=== PATIENT | male | born 1990 | race African-American/Black ===

== ENCOUNTER 2017-07-12 00:36 | Emergency (ER) | payer OTHER ==
[2017-07-12 00:57] VITALS: BP 139/90
--- NOTE | 2017-07-12 00:58 | ED Physician Documentation ---
PD HPI MALE - Stated complaint Stated Complaint: MALE - Chief complaint Chief Complaint: Wound - History obtained from History obtained from: Patient - History of Present Illness Timing - onset: Today Associated symptoms: Genital sore / lesion. No: Dysuria, Urinary frequency, Discharge PD HPI MALE CONTRIB FACTORS: Sexually active Similar symptoms before: Diagnosis (similar to previous episode of herpes) Recently seen: Not recently seen - Additional information Additional information: since this morning has had mild discomfort of penile shaft; tonight when showering, he noted lesions to penile shaft. 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 Review of Systems Constitutional: denies: Fever : denies: Dysuria, Frequency, Discharge Skin: reports: Lesions (penis) PD PAST MEDICAL HISTORY - Past Medical History Past Medical History: Yes Other Past Medical History: Herpes Simplex - Past Surgical History Past Surgical History: No - Present Medications Home Medications: Ambulatory Orders Medication Instructions Recorded Confirmed Valacyclovir HCl [Valacyclovir] 500 mg PO BID #5 tablet 07/12/17 - Allergies Allergies/Adverse Reactions: Allergies Allergy/AdvReac Type Severity Reaction Status Date / Time No Known Drug Allergies Allergy Verified 07/12/17 00:42 - Social History Does the pt smoke?: No Smoking Status: Never smoker Does the pt drink ETOH?: No Does the pt have substance abuse?: No - Immunizations Immunizations are current?: Yes - POLST Patient has POLST: No PD ED PE NORMAL - Vitals Vital signs reviewed: Yes - General General: Alert and oriented X 3, No acute distress, Well developed/nourished PD ED PE EXPANDED - Male Male : Skin lesions (there is a cluster of 4-5 ruptured vesicles without active discharge, located on ventral aspect of penile shaft). 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
[2017-07-12] MEDS ORDERED: valACYclovir 500 MG TABLET PO STA (01:09)
== END 2017-07-12 01:29 | disposition home or self-care (01) ==
LOC: ED 00:36
DX: A60.01 Herpesviral infection of penis (principal)
CPT/HCPCS: 99283; A9270

== ENCOUNTER 2017-09-16 18:15 | Emergency (ER) | payer OTHER ==
[2017-09-16 18:35] VITALS: BP 137/89
--- NOTE | 2017-09-16 19:38 | ED Physician Documentation ---
PD HPI SKIN - Stated complaint Stated Complaint: BLISTERS - Chief complaint Chief Complaint: Wound - History obtained from History obtained from: Patient - History of Present Illness Timing - onset: Today (He has a history of genital herpes and it recurred today. He needs medication.) Review of Systems Constitutional: denies: Fever, Chills Respiratory: denies: Dyspnea, Cough GI: denies: Abdominal Pain, Nausea, Vomiting PD PAST MEDICAL HISTORY - Past Surgical History Past Surgical History: No - Present Medications Home Medications: Ambulatory Orders Medication Instructions Recorded Confirmed Valacyclovir HCl [Valacyclovir] 500 mg PO BID #5 tablet 07/12/17 Valacyclovir HCl [Valacyclovir] 500 mg PO BID #10 tablet 09/16/17 - Allergies Allergies/Adverse Reactions: Allergies Allergy/AdvReac Type Severity Reaction Status Date / Time No Known Drug Allergies Allergy Verified 07/12/17 00:42 - Social History Does the pt smoke?: No Smoking Status: Never smoker Does the pt drink ETOH?: No Does the pt have substance abuse?: No - Immunizations Immunizations are current?: Yes - POLST Patient has POLST: No PD ED PE NORMAL - Vitals Vital signs reviewed: Yes - General General: Alert and oriented X 3, No acute distress - Male Male : Other (Genital herpes L shaft) Results - Vitals Vitals: Vital Signs - 24 hr 09/16/17 18:30 Temperature 36.5 C Heart Rate 71 Respiratory 16 Rate Blood Pressure 137/89 H O2 Saturation 100 Oxygen O2 Source Room air PD MEDICAL DECISION MAKING - Sepsis Event Vital Signs: Vital Signs - 24 hr 09/16/17 18:30 Temperature 36.5 C Heart Rate 71 Respiratory 16 Rate Blood Pressure 137/89 H O2 Saturation 100 Oxygen O2 Source Room air Departure - Departure Disposition: 01 Home, Self Care Clinical Impression: Herpes simplex of male genitalia Condition: Good Record reviewed to determine appropriate education?: Yes Instructions: ED Herpes Simplex Virus Type 2 Prescriptions: Valacyclovir HCl [Valacyclovir] 500 mg PO BID #10 tablet Comments: Call your doctor to arrange a follow-up appointment, make the next available appointment. In the interim, return anytime if worse or if new symptoms develop.
== END 2017-09-16 19:48 | disposition home or self-care (01) ==
LOC: ED 18:15
DX: A60.01 Herpesviral infection of penis (principal)
CPT/HCPCS: 99283